=== PATIENT | female | born 1965 | race Caucasian/White ===

== ENCOUNTER 2016-08-03 01:17 | Emergency (ER) | payer OTHER ==
[~2016-08-03] VITALS: Ht 160 cm; Wt 59.1 kg
[2016-08-03 01:38] VITALS: BP 117/73; PULSE 78; RESP 16; O2SAT 98
--- NOTE | 2016-08-03 02:14 | ED.REPORT ---
HPI-Overdose/Alcohol Toxicity Date of Service Aug 03, 2016 ED Provider: Ej Jaffe MD Pt is a 50 y.o. female with a hx of polysubstance abuse who presents to the ED seeking medical clearance for detox. Pt states that her last ETOH and amphetamine use was 4 days ago. She reports diaphoresis, chills, and lower back pain. She denies a hx of withdrawal seizures. She currently has a bed at [facility] for 0400. Nursing Notes Stated Complaint: DETOX Chief Complaint: Substance Abuse Nursing Notes Reviewed: Yes Allergies: Coded Allergies: erythromycin base (Verified Allergy, Unknown, 08/28/15) levofloxacin (Verified Allergy, Unknown, arm numbness with IV dose, ) Uncoded Allergies: ERYTHROMYCIN (Allergy, Unknown, 11/23/13) Unable to Obtain Active Prescriptions or Reported Meds General Time Seen by Provider: 02:09 Chief Complaint Other (Medical clearance/Detox) Initial Psychiatric Assessment: Deny suicidal intent/plan Hx Obtained From: Patient Arrived By: Walk-in Symptom Duration: Since onset Location: : Back lower Severity: Current: Moderate Past Medical History Past Medical History dental abscess, anxiety, alcohol abuse, termite renewal inspector smoker Past Surgical History Reports: Hysterectomy Family History none reported Smoking History Current Every Day Smoker Social History Lives in a clean and sober house with several other women and children Alcohol Use: Denies alcohol use Drug Use: Denies drug use Ambulatory Status Independent Review of Systems Constitutional: Reports: Chills Musculoskeletal: Reports: Back pain Skin: Reports Diaphoresis Neurologic: Denies: Seizure Complete sys rev & neg: except as marked. Physical Exam Initial Vital Signs Vital Signs (First) Date Time Temp Pulse Resp B/P Pulse Ox O2 Delivery O2 Flow Rate FiO2 08/03/16 01:38 36.2 78 16 117/73 98 Room Air Initial VS: Reviewed, Vital signs normal Head / Eyes: Atraumatic, Normocephalic Extremities: Vascular intact, Neuro intact Skin: Warm, Dry, No cyanosis General/Constitutional: Awake, Alert, No acute distress, Well appearing, Well developed, Well hydrated, Well nourished, Not toxic appearing Respiratory / Chest: Atraumatic, Breath sounds NL, Breath sounds = bilat, No respiratory distress, No rales, No rhonchi, No wheezing, No retractions, No stridor Cardiovascular: Heart rate NL, Regular rhythm, Heart sounds NL, No gallop, No murmurs, No rubs, Cap refill not delayed, Peripheral circulation NL Abdomen: Atraumatic, Soft, Non-tender, No guarding, No rebound Neurologic: Oriented X3, Speech NL Psychiatric: Affect NL, Mood NL, Not suicidal, Not homicidal, Judgment/insight NL, Thought content NL Interpretation & Diagnostics Lab Results Interpretation Test 08/03/16 02:05 Hold Urine Received (Received) General Lab Results Interp 2: Alcohol level NL ECG Interpretation Time: 02:37 Interpreted by: ED physician Normal ECG Interpretation: Normal ECG w/ rate of... (76), Normal rate Drug Screen / Level Interp Urine pos amphetamines Re-Eval/Medical Decision Med Decision/Clinical Course 50-year-old female with polysubstance abuse. She is medically cleared for detox and given an Ativan taper. She has not been vomiting and does not appear clinically ill at the present time. She has no liver tenderness or enlargement. Extensive laboratory testing does not seem warranted in this case. Source of Hx: Old records Counseled Regarding: Diagnosis, Need for follow-up, When/why to return to ED Discharge & Departure Impression: Primary Impression: Substance abuse Additional Impression: Alcohol abuse )( Condition at Discharge: No danger to self, No danger to others, No suicidal ideation, No homicidal ideation, Clear for alcohol rehab, Clear for drug rehab Disposition: Home Discharge Condition All VS Reviewed: Yes Condition: Stable Additional Instructions: You were seen here today for medical clearance for [facility]. You were given an Ativan taper for withdrawal. Please go directly to [facility] upon discharge. Referrals: Lino Kahn DO (PCP) Geena Attestation Portions of this note were transcribed by Eduardo Chacon. I, Dr. Jaffe personally performed the history, physical exam and medical decision-making; I reviewed and confirmed the accuracy of the information in the transcribed note. Signed by: Geena 08/03/16 and 0348. copies to: Lino Kahn Howard L MD Aug 03, 2016 02:14 EDUARDO CHACON Aug 03, 2016 03:04
[2016-08-03] MEDS ORDERED: _LORazepam 2 MG Tablet PO SCH (02:20)
[2016-08-03] MEDS ORDERED: LORazepam 2 mg Tablet PO ONE (03:45)
[2016-08-03 04:00] VITALS: BP 114/70; PULSE 70; RESP 18; O2SAT 99
== END 2016-08-03 03:57 | disposition home or self-care (01) ==
LOC: SED 01:17
DX: F19.10 Other psychoactive substance abuse, uncomplicated (principal); F10.10 Alcohol abuse, uncomplicated; F17.200 Nicotine dependence, unspecified, uncomplicated; Z88.8 Allergy status to other drugs, medicaments and biological substances

== ENCOUNTER 2016-08-05 18:39 | Emergency (ER) | payer OTHER ==
[~2016-08-05] VITALS: Ht 160 cm; Wt 61.4 kg
[2016-08-05 18:46] VITALS: BP 127/82; PULSE 84; RESP 22; O2SAT 98
--- NOTE | 2016-08-05 19:31 | ED.REPORT ---
HPI-Dental/Mouth Prob Date of Service Aug 05, 2016 ED Provider: Taylor Taylor History of Present Illness: tooth pain wears dentures, concerned about infection. no dental care, roxann is priamry care. last saw him more than 1 year ago. 9/10 pain. will be returning to detox. ongoing for a week. Nursing Notes Stated Complaint: TOOTH INFECTION Chief Complaint: Dental Nursing Notes Reviewed: Yes Allergies: Coded Allergies: erythromycin base (Verified Allergy, Unknown, 08/28/15) levofloxacin (Verified Allergy, Unknown, arm numbness with IV dose, ) Uncoded Allergies: ERYTHROMYCIN (Allergy, Unknown, 11/23/13) Unable to Obtain Active Prescriptions or Reported Meds General Time Seen by MD: 19:08 Chief Complaint Tooth pain Hx Obtained From: Patient Onset Occurred: 1 week ago Past Medical History Past Medical History dental abscess, anxiety, alcohol abuse, moth exterminator smoker dental pain 08/05/2016 Past Surgical History Reports: Hysterectomy Family History none reported Smoking History Current Every Day Smoker Social History at detox at present for etoh, is hoping to go to [facility] after detox. Alcohol Use: Denies alcohol use Drug Use: Denies drug use Occupation no work or school at this time08/05/2016 Ambulatory Status Independent Review of Systems Basic Review of Systems Eyes: Vision NL, No discharge Cardiovascular: No chest pain, No dyspnea on exertion, No orthopnea, No parox noct dyspnea, No palpitations : No dysuria, No frequency Musculoskeletal: No extremity swelling, No extremity pain, Full range of motion , Joints NL Hematologic: No bleeding, No bruising Endocrine: No cold intolerance, No heat intolerance, No weight gain, No weight loss Skin: No bruising, No rash, No itch Allergy / Immune: No allergy Neurologic: NL mental status, No weakness, No numbness Psychiatric: Normal thought content Physical Exam Initial Vital Signs Vital Signs (First) Date Time Temp Pulse Resp B/P Pulse Ox O2 Delivery O2 Flow Rate FiO2 08/05/16 18:46 36.7 84 22 127/82 98 Room Air Initial VS: Reviewed, Vital signs normal General/Constitutional: Well-developed, Well-nourished Head / Eyes: Atraumatic, Normocephalic, PERRL Respiratory: Breath sounds normal, Clear to auscultation, No respiratory distress Cardiovascular: Regular rate & rhythm, Heart sounds normal, Intact distal pulses Abdomen / GI: Soft, Non-tender, No guarding, No rebound, No distention Back: No CVA tenderness Lymphatic: No lymphadenopathy Extremities: Vascular intact, Neuro intact, No swelling, No tenderness Skin: Warm, Dry, No cyanosis Neurologic: Alert, Oriented, Nonfocal Psychiatric: Mood/affect normal, Behavior normal, Normal thought content ENT: Atraumatic, Airway patent, Mucous membranes moist, Pharynx NL Neck: Atraumatic, Supple, No meningismus, Full range of motion, No adenopathy General/Constitutional: Awake, Alert, No acute distress, Well appearing, Well developed, Well hydrated, Well nourished, Cooperative, Not toxic appearing Respiratory / Chest: Atraumatic, Breath sounds NL, Breath sounds = bilat, No respiratory distress Cardiovascular: Heart rate NL, Regular rhythm, Heart sounds NL Interpretation & Diagnostics Lab Results Interpretation Test 08/05/16 20:02 Hold Urine Received (Received) Discharge & Departure Primary Impression: Toothache Disposition: Home Patient Instructions: Dental Caries (ED) Additional Instructions: You have extensive decay in several teeth including your anchor tooth for your dentures. You need to see a dentist to see what is recommended. In the meantime , continue with antibiotics, amoxicillin, 500 mg 3 times a day. Use ibuprofen 800 mg 3 times a day. Also a small amount of hydrocodone has been provided, use this medication in the am and pm. Ice is much better for dental pain, use 15 minutes on and 15 minutes off. A list of dental resources is provided. Please follow with them to get some dental care. Referrals: Lino Kahn DO (PCP) [facility] EDSupervising Provider for APC: Elvin Glass MD copies to: Lino Kahn Sue ARNP Aug 05, 2016 19:31
[2016-08-05] MEDS ORDERED: Ketorolac 30 mg/mL 2 mL Inj IM ONE (19:45)
[2016-08-05] MEDS ORDERED: _HYDROcodone/APAP 5-325 mg Tablet PO PRN (19:45)
[2016-08-05 20:21] VITALS: BP 112/60; PULSE 64; RESP 20; O2SAT 99
[2016-08-05 20:34] VITALS: BP 112/60; PULSE 74; RESP 20; O2SAT 99
== END 2016-08-05 20:34 | disposition home or self-care (01) ==
LOC: SED 18:39
DX: K02.9 Dental caries, unspecified (principal); F10.20 Alcohol dependence, uncomplicated; F17.200 Nicotine dependence, unspecified, uncomplicated; Z97.2 Presence of dental prosthetic device (complete) (partial); Z88.1 Allergy status to other antibiotic agents
CPT/HCPCS: 96372; 99283; J1885